=== PATIENT | female | born 1960 | race Caucasian/White ===

== ENCOUNTER 2021-03-15 09:09 | Day surgery (SDC) | payer BC ==
[~2021-03-15] VITALS: Ht 162.6 cm; Wt 79.5 kg
[~2021-03-15 09:09] MED LIST: AMOX500 PO; EUTHYROX50 MCG PO; METO25ER PO
== END 2021-03-15 11:02 | disposition home or self-care (01) ==
LOC: ORSCSDS 09:09
PROVIDERS: Internal Medicine Gastroenterology
PROC: 0DBP8ZX Excision of Rectum, Via Natural or Artificial Opening Endoscopic, Diagnostic (ICD-10-PCS; principal; 2021-03-15 10:15)
PROC: 0DBN8ZX Excision of Sigmoid Colon, Via Natural or Artificial Opening Endoscopic, Diagnostic (ICD-10-PCS; principal; 2021-03-15 10:15)
DX: Z12.11 Encounter for screening for malignant neoplasm of colon (principal); Z86.010 Personal history of colon polyps; K63.5 Polyp of colon; K62.1 Rectal polyp; K64.4 Residual hemorrhoidal skin tags; Z87.891 Personal history of nicotine dependence; Z79.899 Other long term (current) drug therapy
CPT/HCPCS: 88305; J2704; J7120